=== PATIENT | male | born 1950 | race Caucasian/White ===

== ENCOUNTER → 2016-07-21 | Outpatient (CLI) | payer MEDICARE | END | disposition home or self-care (01) | LOC: GMAB 10:10 | PROVIDERS: ATTEND Family Medicine | DX: Z12.5 Encounter for screening for malignant neoplasm of prostate (principal); R53.82 Chronic fatigue, unspecified | CPT/HCPCS: 84403; 84443; G0103 ==

== ENCOUNTER → 2017-01-29 | Outpatient (CLI) | payer MEDICARE | END | disposition home or self-care (01) | LOC: GMAB 10:36 | PROVIDERS: ATTEND Family Medicine | DX: N20.0 Calculus of kidney (principal) ==

== ENCOUNTER → 2017-05-17 | Outpatient (CLI) | payer MEDICARE ==
--- NOTE | 2017-05-17 13:58 | CT ---
EXAM DESCRIPTION: Abdomen/Pelvis w/wo Contrast CLINICAL HISTORY: 67 years Male, EPIGASTRIC PAIN COMPARISON: 05 January 2017 TECHNIQUE: Transaxial images were obtained with and without intravenous contrast media and without oral contrast media. Sagittal and coronal reconstruction was performed.This exam was performed according to our departmental dose-optimization program, which includes automated exposure control, adjustment of the mA and/or kV according to patient size and/or use of iterative reconstruction technique. FINDINGS: Minimal atelectatic type parenchymal changes are observed in the lung bases. A small cyst is observed in the posterior right dome of the liver. There is also a cyst in the mid right liver lobe. No biliary ductal dilatation is observed. The gallbladder is been previously removed. Surgical clips are seen in the region of the gallbladder fossa. The spleen is normal in appearance. No adrenal masses are detected. The pancreas is normal in appearance. Imaging of the kidneys reveals no evidence of hydronephrosis mass cyst or calcification. Calcific atherosclerotic changes observed in the abdominal aorta. Mild ectasia is noted. The aorta measures 2.47 cm in greatest dimension. The appendix is identified and is normal in appearance. No free fluid is observed in the pelvis. No inguinal region abnormality is seen. Diverticulosis of the sigmoid colon is observed without evidence of diverticulitis. Degenerative changes are observed in the lumbar spine. Loss of disc at is observed at the L4-5 level. IMPRESSION: 1. Small cysts are observed in the liver unchanged from the previous exam. 2. Cholecystectomy. 3. Ectasia of the abdominal aorta unchanged the previous exam. 4. Uncomplicated diverticulosis of the colon Electronically signed by: Andrew Arboleda MD 05/17/2017 1:57 PM [employer]
== END ==
LOC: GMAB 12:05
PROVIDERS: ATTEND Family Medicine
DX: R10.13 Epigastric pain (principal); K76.89 Other specified diseases of liver; I77.819 Aortic ectasia, unspecified site; K57.30 Diverticulosis of large intestine without perforation or abscess without bleeding; Z90.49 Acquired absence of other specified parts of digestive tract

== ENCOUNTER → 2018-02-04 | Outpatient (CLI) | payer MEDICARE | LOC: GMAE 10:58 | PROVIDERS: ATTEND Family Medicine | DX: Z12.5 Encounter for screening for malignant neoplasm of prostate (principal); Z79.899 Other long term (current) drug therapy | CPT/HCPCS: 84443; G0103 ==

== ENCOUNTER → 2018-02-13 | Outpatient (CLI) | payer MEDICARE ==
--- NOTE | 2018-02-13 13:06 | US ---
Procedure: US RETROPERITONEUM AORTA Exam Date: 02/13/2018 Ordering Provider: POLO ROMO Clinical Indication: AAA,ENCOUNTER FOR SCREENING FOR OTHER DISORDER Comparison: 05/17/2017 CT abdomen pelvis TECHNIQUE : Real-time ultrasonography was obtained of the abdominal aorta to the bifurcation utilizing padilla scale and color flow analysis. FINDINGS: Scattered atherosclerotic plaque in the abdominal aorta. Proximal aorta measures 2.4 cm in greatest dimension. Mid aorta measures 1.8 cm in greatest dimension. Distal aorta measures 1.6 cm in greatest dimension. IMPRESSION: 1. No abdominal aortic aneurysm. Electronically signed by: Alexi Miner MD 02/13/2018 1:04 PM [facility]
== END ==
LOC: US 08:00
PROVIDERS: ATTEND Family Medicine
DX: Z13.89 Encounter for screening for other disorder (principal)

== ENCOUNTER → 2018-02-21 | Outpatient (CLI) | payer MEDICARE ==
--- NOTE | 2018-02-21 21:32 | US ---
EXAM DESCRIPTION: Extremity,Upper [place] Arteries: Ultrasound. CLINICAL HISTORY: NUMBNESS COMPARISON: None. TECHNIQUE: Doppler evaluation of the bilateral upper extremity arterial flow waveforms and velocities. FINDINGS: Arterial waveforms in the right upper extremity are biphasic in the right subclavian, right axillary. Triphasic in the right brachial and right ulnar vessels. Monophasic in the right radial artery.. Arterial waveforms in the left upper extremity are biphasic in the left subclavian and left axillary arteries. Triphasic in the left brachial and left ulnar vessels. Monophasic in the left radial artery... Comments: Velocities in the left upper extremity vessels are approximately 10-20% higher than the contralateral right upper extremity vessels except for the radial arteries, where the right radial artery velocity is 10% greater than the left. IMPRESSION: The waveforms in the bilateral upper extremities are relatively symmetric with better waveforms in the bilateral ulnar arteries compared to the radial arteries. Velocities are 10-20% better in the left upper extremity except right radial velocity is 10% better than the left radial. This suggests no significant discrepancy in arterial flow in the upper extremities. Electronically signed by: Uday Mclean MD 02/21/2018 9:31 PM [facility]
== END ==
LOC: GMAE 09:30
PROVIDERS: ATTEND Family Medicine
DX: R20.2 Paresthesia of skin (principal)

== ENCOUNTER → 2018-03-28 | Outpatient (CLI) | payer MEDICARE ==
--- NOTE | 2018-03-28 11:26 | MRI ---
EXAM DESCRIPTION: Cervical Spine: MRI. CLINICAL HISTORY: 68 years Male RADICULOPATHY COMPARISON: None. TECHNIQUE: Multiplanar, high-field MRI, multiple sequences, non-contrast Cervical spine. FINDINGS: C3-4: Disc desiccation. Disc space preserved. Posterior 2 mm bulge not abutting the cord. Bilateral uncinate spurs. Mild bilateral neural foraminal narrowing. Normal facets and ligaments. Mild canal narrowing. C4-5: Disc desiccation and minimal disc space loss. Minimal anterior bulging. Minimal posterior bulge not touching the cord. Bilateral uncinate spurs. Bilateral moderate neural foraminal narrowing. Mild canal narrowing. Facets and ligaments negative. C5-6: Disc desiccation and moderate disc space loss. Posterior disc osteophyte bulge abutting the cord. Bilateral uncinate spurs. Mild left neural foraminal narrowing and mild left facet arthrosis. Borderline mild central canal stenosis. Normal ligaments. C6-7: Minimal disc desiccation with disc space preserved. Posterior endplate ridging. Mild bilateral uncinate spurs. Bilateral disc bulge into the neural foramina Minimal left neural foraminal narrowing. Mild canal narrowing. Normal signal in the C2-3 disc and C7-T1 disc with no bulging. Disc spaces preserved. Canal and neural foramina are patent. Facets are negative. Spinal alignment shows trace anterolisthesis C2-C3 and trace retrolisthesis C3-C4. No cord compression or cord edema. Atlantoaxial joint with minimal posterior hypertrophy. Base of the cerebellar tonsils is above the foramen magnum. Paravertebral soft tissues unremarkable. Vertebral bodies are not compressed at any level. Circumscribed hyperintense T1 and T2 and STIR signal anterior T2 vertebral body. Normal marrow signal in the remaining vertebral bodies and the posterior elements. IMPRESSION: 1. Multiple levels of disc bulging, bilateral uncinate spurs, and posterior endplate ridging. Also anterior bulging and endplate spurs. 2. Posterior disc osteophyte bulge into the canal with bilateral uncinate spurs and borderline mild central canal stenosis at C5-6. Correlate for bilateral C6 radiculopathy. 3. Posterior C4-5 disc bulge. Bilateral uncinate spurs. Bilateral moderate neural foraminal narrowing. Correlate for bilateral C5 radiculopathy. 4. Vertebral body hemangioma T2 level. Electronically signed by: Uday Mclean MD 03/28/2018 11:24 AM [facility]
== END ==
LOC: MRI 08:00
PROVIDERS: ATTEND Family Medicine
DX: M50.122 Cervical disc disorder at C5-C6 level with radiculopathy (principal); M50.123 Cervical disc disorder at C6-C7 level with radiculopathy

== ENCOUNTER → 2018-04-03 | Outpatient (CLI) | payer MEDICARE ==
--- NOTE | 2018-04-03 11:31 | CT ---
EXAM DESCRIPTION: Abdoment/Pelvis w/o Contrast CLINICAL HISTORY: LEFT LOWER QUADRANT PAIN COMPARISON: May 17, 2017 TECHNIQUE: CT of the abdomen and Pelvis was performed without IV contrast. This exam was performed according to our departmental dose-optimization program, which includes automated exposure control, adjustment of the mA and/or kV according to patient size and/or use of iterative reconstruction technique. FINDINGS: Mild subsegmental atelectasis or scarring in both lung bases. No pneumoperitoneum or adenopathy. Tiny amount of free low-density fluid in the pelvis. No additional ascites. Mural calcifications in the abdominal aorta without aneurysm. No hiatal hernia or gastric wall thickening. There are a few small round low-density liver lesions, all too small to characterize but probably representing cysts. The gallbladder is surgically absent. Spleen, pancreas, adrenals and kidneys are unremarkable for noncontrast technique. No left or right-sided urinary tract calculus, hydronephrosis or perinephric inflammation. No small bowel or mesenteric abnormality. No bladder wall thickening or bladder calcification. The prostate is enlarged, measuring just over 6 cm transverse diameter. Moderate amount of colonic stool and gas. Colonic diverticulosis without diverticulitis. No appendicitis. Degenerative changes in the thoracolumbar spine at several levels. No fracture. IMPRESSION: Moderate amount of stool and gas in the colon and colonic diverticulosis, but no diverticulitis. No urinary tract calculus, hydronephrosis or perinephric inflammation. Enlarged prostate, correlate with serum PSA evaluation. Electronically signed by: Justin Contreras MD 04/03/2018 11:30 AM [employer]
== END ==
LOC: CT 10:29
PROVIDERS: ATTEND Family Medicine
DX: R10.32 Left lower quadrant pain (principal); K57.30 Diverticulosis of large intestine without perforation or abscess without bleeding; N40.0 Benign prostatic hyperplasia without lower urinary tract symptoms

== ENCOUNTER → 2018-05-01 | Outpatient (CLI) | payer MEDICARE | LOC: GMAE 10:55 | PROVIDERS: ATTEND Family Medicine | DX: E53.8 Deficiency of other specified B group vitamins (principal) ==